=== PATIENT | female | born 1970 | race Caucasian/White ===

== ENCOUNTER 2022-05-28 07:18 | Day surgery (SDC) | payer BC ==
[~2022-05-28] VITALS: Ht 160 cm; Wt 88.0 kg
[2022-05-28] MEDS ORDERED: COLACE 100100 MG/CAP PO (09:23)
[2022-05-28] MEDS ORDERED: PRIL40 PO (09:23)
[2022-05-28 09:34] VITALS: BP 134/77; PULSE 64; TEMP 97.5
[2022-05-28 10:35] VITALS: BP 133/801; PULSE 56; TEMP 97
[2022-05-28 10:50] VITALS: BP 135/75; PULSE 55
[2022-05-28 11:05] VITALS: BP 143/81; PULSE 64
--- NOTE | 2022-05-28 15:51 | NUR ---
1035: PATIENT TO BAY 2 PER CART FROM ENDO SUITE. PATIENT AMBULATED FROM CART TO RECLINER X2 ASSIST. VS OBTAINED. BREATHING EVEN AND UNLABORED. REPORT RECEIVED FROM ENDO NURSE. PATIENT TIRED AND DECLINING FOOD AND DRINK AT THIS TIME. RESTING IN RECLINER AT THIS TIME. BERTHA AT BEDSIDE. CALL LIGHT IN REACH. 1050: VS STABLE. PATIENT ALERT AND REQUESTING JUICE AND CRACKERS. NO NEEDS OR COMPLAINTS NOTED AT THIS TIME. RESTING IN RECLINER. BERTHA AT BEDSIDE. CALL LIGHT IN REACH. 1055: DR. BURDICK IN TO SPEAK WITH PATIENT AT THIS TIME. 1105: VS REMAIN STABLE. PATIENT TOLERATING JUICE AND CRACKERS. NO NEEDS OR COMPLAINTS NOTED AT THIS TIME. RESTING IN RECLINER BERTHA AT BEDSIDE. CALL LIGHT IN REACH. 1115: DISCHARGE EDUCATION COMPLETED AT THIS TIME. PATIENT STATED UNDERSTANDING OF INSTRUCTIONS. DISCHARGE PAPERWORK GIVEN TO PATIENT. IV DC'D AT THIS TIME. PATIENT DENIES ASSISTANCE WITH DRESSING 1120: PATIENT AMBULATED FROM RECLINER TO WHEELCHAIR WITH STEADY GAIT. PATIENT OFF UNIT AT THIS TIME VIA WHEELCHAIR. PATIENT DISCHARGED TO HOME WITH FAMILY PER PERSONAL VEHICLE.
== END 2022-05-28 11:20 | disposition home or self-care (01) ==
LOC: SDCO 07:18
DX: K29.70 Gastritis, unspecified, without bleeding (principal); K20.90 Esophagitis, unspecified without bleeding; K22.89 Other specified disease of esophagus; K64.0 First degree hemorrhoids; K59.00 Constipation, unspecified; K92.1 Melena; R19.7 Diarrhea, unspecified; F17.210 Nicotine dependence, cigarettes, uncomplicated; Z98.84 Bariatric surgery status
CPT/HCPCS: J2704; J7120